=== PATIENT | male | born 1980 | race Asian ===

== ENCOUNTER 2016-07-03 20:58 | Emergency (ER) | payer OTHER ==
[~2016-07-03] VITALS: Ht 175.3 cm; Wt 104.5 kg
[~2016-07-03 20:58] MED LIST: ASPI-825 PO; CARV12.530 PO; CETI-260 PO; DOXA1TAB2 PO; FEBU40T PO; FOLI1 PO; GABA-533 PO; HYDR-4174 PO; INSLAN SQ; INSU100V SQ
[2016-07-03 21:15] LABS: GLUCOSE,POINT OF CARE 116 MG/DL (70-110)
[2016-07-03 23:31] VITALS: BP 135/89
== END 2016-07-03 23:33 | disposition home or self-care (01) ==
LOC: EMS 20:59
DX: S90.111A Contusion of right great toe without damage to nail, initial encounter (principal); I11.0 Hypertensive heart disease with heart failure; I50.9 Heart failure, unspecified; E11.9 Type 2 diabetes mellitus without complications; Z79.82 Long term (current) use of aspirin; Z79.4 Long term (current) use of insulin; X58.XXXA Exposure to other specified factors, initial encounter; Y93.89 Activity, other specified; Y92.89 Other specified places as the place of occurrence of the external cause; Y99.8 Other external cause status
CPT/HCPCS: 82962; 99284

== ENCOUNTER 2017-03-27 16:46 | Emergency (ER) | payer OTHER ==
[~2017-03-27] VITALS: Ht 175.3 cm; Wt 90.0 kg
[~2017-03-27 16:46] MED LIST changes: -CETI-260 PO; +CETI-290 PO
[2017-03-27] MEDS ORDERED: GuaiFENesin/D-METHORPHAN [SUGAR-FREE] 200-20MG/10 ML SYRUP UDCUP PO ONE (18:30)
[2017-03-27] MEDS ORDERED: ACETAMINOPHEN/CODEINE 300-30 MG TABLET PO ONE (18:30)
[2017-03-27 19:47] VITALS: BP 142/81
== END 2017-03-27 20:03 | disposition home or self-care (01) ==
LOC: EMS 16:47
DX: J40 Bronchitis, not specified as acute or chronic (principal); J06.9 Acute upper respiratory infection, unspecified; I11.0 Hypertensive heart disease with heart failure; I50.9 Heart failure, unspecified; E11.9 Type 2 diabetes mellitus without complications; Z79.82 Long term (current) use of aspirin; Z79.4 Long term (current) use of insulin; Z87.891 Personal history of nicotine dependence
CPT/HCPCS: 99283

== ENCOUNTER 2017-10-19 18:06 | Emergency (ER) | payer OTHER ==
[~2017-10-19] VITALS: Ht 175.3 cm; Wt 109.1 kg
[~2017-10-19 18:06] MED LIST changes: -CETI-290 PO; -DOXA1TAB2 PO
[2017-10-19 18:17] LABS: GLUCOSE,POINT OF CARE 233 MG/DL (70-110)
[2017-10-19 19:23] LABS: GLUCOSE,POINT OF CARE 182 MG/DL (70-110)
[2017-10-19 21:18] VITALS: BP 139/87
== END 2017-10-19 21:20 | disposition home or self-care (01) ==
LOC: EMS 18:07
DX: S99.922A Unspecified injury of left foot, initial encounter (principal); I11.0 Hypertensive heart disease with heart failure; I50.9 Heart failure, unspecified; E11.9 Type 2 diabetes mellitus without complications; Z79.4 Long term (current) use of insulin; Z79.82 Long term (current) use of aspirin; Z87.891 Personal history of nicotine dependence; W45.8XXA Other foreign body or object entering through skin, initial encounter; Y93.89 Activity, other specified; Y92.098 Other place in other non-institutional residence as the place of occurrence of the external cause; Y99.8 Other external cause status
CPT/HCPCS: 82948; 99284

== ENCOUNTER 2018-01-12 21:45 | Emergency (ER) | payer OTHER ==
[~2018-01-12] VITALS: Ht 175.3 cm; Wt 109.1 kg
[2018-01-12] MEDS ORDERED: CHL25 PO (21:52)
[2018-01-12 21:58] LABS: GLUCOSE,POINT OF CARE 283 MG/DL (70-110)
[2018-01-12] MEDS ORDERED: SODIUM CHLORIDE 0.9% 250 ML IRRIG SOLUTION BOTTLE IRRIG ONE (23:00)
[2018-01-12 23:08] VITALS: BP 149/96
== END 2018-01-12 23:16 | disposition home or self-care (01) ==
LOC: EMS 21:46
DX: S92.414A Nondisplaced fracture of proximal phalanx of right great toe, initial encounter for closed fracture (principal); S80.812A Abrasion, left lower leg, initial encounter; I11.0 Hypertensive heart disease with heart failure; I50.9 Heart failure, unspecified; E11.9 Type 2 diabetes mellitus without complications; Z79.4 Long term (current) use of insulin; Z79.82 Long term (current) use of aspirin; Z87.891 Personal history of nicotine dependence; W01.10XA Fall on same level from slipping, tripping and stumbling with subsequent striking against unspecified object, initial encounter; Y93.89 Activity, other specified; Y92.89 Other specified places as the place of occurrence of the external cause; Y99.8 Other external cause status
CPT/HCPCS: 99284

== ENCOUNTER 2020-12-06 21:58 | Emergency (ER) | payer MEDICARE, OTHER ==
[~2020-12-06] VITALS: Ht 175.3 cm; Wt 105.5 kg
[~2020-12-06 21:58] MED LIST changes: +ALLO100T2 PO; +ASPI-1450 PO; -ASPI-825 PO; +ATOR20TA65 PO; +CARV12 PO; -CARV12.530 PO; -FEBU40T PO; -FOLI1 PO; -GABA-533 PO; +GENT30CR TP; -HYDR-4174 PO; +SEVE800T17 PO
[2020-12-06 22:19] LABS: GLUCOSE,POINT OF CARE 162 MG/DL (70-110)
[2020-12-06] MEDS ORDERED: HYDROGEN PEROXIDE 118 ML SOLUTION TP ONE (23:30)
[2020-12-06 23:50] VITALS: BP 135/80
== END 2020-12-07 00:03 | disposition home or self-care (01) ==
LOC: EMS 22:00
DX: S61.102A Unspecified open wound of left thumb with damage to nail, initial encounter (principal); I11.0 Hypertensive heart disease with heart failure; I50.9 Heart failure, unspecified; E11.9 Type 2 diabetes mellitus without complications; F17.210 Nicotine dependence, cigarettes, uncomplicated; Z79.4 Long term (current) use of insulin; W45.8XXA Other foreign body or object entering through skin, initial encounter; Y93.89 Activity, other specified; Y92.89 Other specified places as the place of occurrence of the external cause; Y99.8 Other external cause status
CPT/HCPCS: 82962; 99282

== ENCOUNTER 2021-06-24 18:14 | Emergency (ER) | payer MEDICARE, OTHER ==
[~2021-06-24] VITALS: Ht 175.3 cm; Wt 106.8 kg
[2021-06-24 20:14] LABS: BASOPHILS % (AUTO) 0.9 % (0.0-2.0); EOSINOPHILS % (AUTO) 9.5 % (1.0-6.0); HEMATOCRIT 28.5 % (41-53); HEMOGLOBIN 9.6 g/dL (13.5-17.5); LYMPHOCYTES # (AUTO) 0.6 K/uL (1.0-4.8); LYMPHOCYTES % (AUTO) 9.4 % (22.0-44.0); MEAN CORPUSCULAR HEMOGLOBIN 32.5 pg (26.0-34.0); MEAN CORPUSCULAR HGB CONC 33.6 G/dL (31.0-37.0); MEAN CORPUSCULAR VOLUME 97 fL (80-100); MONOCYTES # (AUTO) 0.5 K/uL (0.1-1.0); MONOCYTES % (AUTO) 7.9 % (2.0-9.0); NEUTROPHILS # (AUTO) 4.5 K/uL (1.8-7.7); NEUTROPHILS % (AUTO) 72.3 % (40.0-70.0); PLATELET COUNT (AUTO) 194 K/uL (150-450); RED BLOOD CELL COUNT(AUTO) 2.94 MIL/uL (4.50-5.90); RED CELL DISTRIBUTION WIDTH 13.3 % (11.5-14.5)
[2021-06-24 20:23] LABS: CALCIUM, TOTAL 8.4 mg/dL (8.8-10.5); CREATININE 17.23 mg/dL (0.60-1.30); POTASSIUM 5.4 mmol/L (3.5-5.1)
[2021-06-24 20:30] LABS: ALBUMIN 3.2 g/dL (3.4-5.0); BILIRUBIN,TOTAL 0.3 mg/dL (0.1-1.0); TOTAL PROTEIN, SERUM 7.1 g/dL (6.4-8.2)
[2021-06-24 21:51] LABS: APPEARANCE,URINE SL CLOUDY (CLEAR); BILIRUBIN,URINE NEGATIVE (NEGATIVE); GLUCOSE, URINE (UA) 250 mg/dL (NEGATIVE); KETONES,URINE NEGATIVE (NEGATIVE); LEUKOCYTE ESTERASE ,URINE NEGATIVE (NEGATIVE); NITRATE,URINE NEGATIVE (NEGATIVE); OCCULT BLOOD,URINE MODERATE (NEGATIVE); PROTEIN,URINE SEE CONFIRM (NEGATIVE); UROBILINOGEN,URINE 0.2 mg/dL (<=1.0)
[2021-06-24 22:03] LABS: BACTERIA,URINE Few /HPF (None Seen); SQUAMOUS EPITHELIAL CELL,UR Rare /LPF (None Seen); SULFOSALICYLIC ACID,URINE 3+ (Negative)
[2021-06-24 22:30] VITALS: BP 152/76
== END 2021-06-25 03:03 | disposition home or self-care (01) ==
LOC: EMS 18:19
DX: M54.50 Low back pain, unspecified (principal); I13.2 Hypertensive heart and chronic kidney disease with heart failure and with stage 5 chronic kidney disease, or end stage renal disease; E11.22 Type 2 diabetes mellitus with diabetic chronic kidney disease; N18.6 End stage renal disease; I50.9 Heart failure, unspecified; E11.9 Type 2 diabetes mellitus without complications; Z79.4 Long term (current) use of insulin; Z79.899 Other long term (current) drug therapy; Z87.891 Personal history of nicotine dependence; Z99.2 Dependence on renal dialysis
CPT/HCPCS: 74176; 80053; 81001; 81002; 83690; 85025; 99284

== ENCOUNTER 2022-04-16 19:18 | Emergency (ER) | payer MEDICARE, OTHER ==
[~2022-04-16] VITALS: Ht 175.3 cm; Wt 111.4 kg
[~2022-04-16 19:18] MED LIST changes: +ALLO-97 PO; -ALLO100T2 PO
[2022-04-16] MEDS ORDERED: SEMA0.25 SQ (19:34)
[2022-04-16] MEDS ORDERED: INSLAN SQ (19:34)
[2022-04-16 20:05] LABS: BASOPHILS % (AUTO) 0.7 % (0.0-2.0); EOSINOPHILS % (AUTO) 7.8 % (1.0-6.0); HEMATOCRIT 33.6 % (41-53); HEMOGLOBIN 11.3 g/dL (13.5-17.5); LYMPHOCYTES # (AUTO) 0.8 K/uL (1.0-4.8); LYMPHOCYTES % (AUTO) 9.7 % (22.0-44.0); MEAN CORPUSCULAR HEMOGLOBIN 34.1 pg (26.0-34.0); MEAN CORPUSCULAR HGB CONC 33.7 G/dL (31.0-37.0); MEAN CORPUSCULAR VOLUME 101 fL (80-100); MONOCYTES # (AUTO) 0.7 K/uL (0.1-1.0); MONOCYTES % (AUTO) 8.6 % (2.0-9.0); NEUTROPHILS % (AUTO) 73.2 % (40.0-70.0); PLATELET COUNT (AUTO) 171 K/uL (150-450); RED BLOOD CELL COUNT(AUTO) 3.32 MIL/uL (4.50-5.90); RED CELL DISTRIBUTION WIDTH 13.5 % (11.5-14.5)
[2022-04-16 20:14] LABS: CALCIUM, TOTAL 8.9 mg/dL (8.8-10.5); CREATININE 16.86 mg/dL (0.60-1.30); POTASSIUM 3.8 mmol/L (3.5-5.1)
[2022-04-16 20:20] LABS: BILIRUBIN,TOTAL 0.2 mg/dL (0.1-1.0); TOTAL PROTEIN, SERUM 7.3 g/dL (6.4-8.2)
[2022-04-16 21:00] VITALS: BP 143/75
[2022-04-16 21:16] LABS: GLUCOSE,POINT OF CARE 197 MG/DL (70-110)
[2022-04-17] MEDS ORDERED: ALLO100T PO (18:39)
[2022-04-17] MEDS ORDERED: FOLI-130 PO (18:39)
[2022-04-17] MEDS ORDERED: BETA50CR5 TP (18:39)
[2022-04-17] MEDS ORDERED: BRIM15DR8 OU (18:39)
[2022-04-17] MEDS ORDERED: ATOR10TA69 PO (18:39)
[2022-04-17] MEDS ORDERED: INSU3INS3 SQ (18:39)
[2022-04-17] MEDS ORDERED: OMEP20CA12 PO (18:39)
[2022-04-17] MEDS ORDERED: INSU100I3 SQ (18:39)
[2022-04-17] MEDS ORDERED: LATA2.5D14 OU (18:39)
[2022-04-17] MEDS ORDERED: GABA-529 PO (18:39)
== END 2022-04-16 23:40 | disposition home or self-care (01) ==
LOC: EMS 22:08
DX: E11.65 Type 2 diabetes mellitus with hyperglycemia (principal); E11.22 Type 2 diabetes mellitus with diabetic chronic kidney disease; I13.2 Hypertensive heart and chronic kidney disease with heart failure and with stage 5 chronic kidney disease, or end stage renal disease; N18.6 End stage renal disease; Z99.2 Dependence on renal dialysis; Z87.891 Personal history of nicotine dependence
CPT/HCPCS: 80053; 82962; 84484; 85025; 99283

== ENCOUNTER 2024-01-04 06:10 | Emergency (ER) | payer OTHER ==
[~2024-01-04] VITALS: Ht 175.3 cm; Wt 86.4 kg
[~2024-01-04 06:10] MED LIST changes: -ALLO-97 PO; +ALLO100T PO; +ATOR10TA69 PO; -ATOR20TA65 PO; +BETA50CR5 TP; +BRIM5DRO9 OU; +FOLI-130 PO; +GABA-529 PO; -GENT30CR TP; +INSU100I3 SQ; -INSU100V SQ; +INSU3INS3 SQ; +LATA2.5D14 OU; +OMEP20CA12 PO; +SEMA0.25 SQ; -SEVE800T17 PO; +SEVE800T38 PO
[2024-01-04 06:17] VITALS: TEMP 98.3
[2024-01-04 06:37] LABS: BASOPHILS % (AUTO) 0.5 % (0.0-2.0); EOSINOPHILS % (AUTO) 10.2 % (1.0-6.0); HEMATOCRIT 28.1 % (41-53); HEMOGLOBIN 9.7 g/dL (13.5-17.5); LYMPHOCYTES # (AUTO) 0.4 K/uL (1.0-4.8); LYMPHOCYTES % (AUTO) 5.5 % (22.0-44.0); MEAN CORPUSCULAR HEMOGLOBIN 35.2 pg (26.0-34.0); MEAN CORPUSCULAR HGB CONC 34.7 G/dL (31.0-37.0); MEAN CORPUSCULAR VOLUME 102 fL (80-100); MONOCYTES # (AUTO) 0.8 K/uL (0.1-1.0); MONOCYTES % (AUTO) 10.7 % (2.0-9.0); NEUTROPHILS # (AUTO) 5.3 K/uL (1.8-7.7); NEUTROPHILS % (AUTO) 73.1 % (40.0-70.0); PLATELET COUNT (AUTO) 150 K/uL (150-450); RED BLOOD CELL COUNT(AUTO) 2.76 MIL/uL (4.50-5.90); RED CELL DISTRIBUTION WIDTH 13.3 % (11.5-14.5); WHITE BLOOD COUNT (AUTO) 7.2 K/uL (4.5-11.0)
[2024-01-04 06:47] LABS: ANION GAP 9 mmol/L (8-16); CALCIUM, TOTAL 8.8 mg/dL (8.8-10.5); CARBON DIOXIDE 31 mmol/L (22-29); CHLORIDE 91 mmol/L (98-107); CREATININE 14.97 mg/dL (0.60-1.30); GLOMERULAR FILTR. RATE CALC 4 mL/min (>60); GLUCOSE,RANDOM 154 mg/dL (70-110); POTASSIUM 3.1 mmol/L (3.5-5.1); SODIUM SERUM 131 mmol/L (136-145); UREA NITROGEN, BLOOD 72 mg/dL (7-18)
[2024-01-04 06:48] LABS: LIPASE 62 U/L (16-77)
[2024-01-04 06:51] LABS: B-TYPE NATRIURETIC PEPTIDE 74 pg/mL (0-100)
[2024-01-04 06:52] LABS: LACTIC ACID 1.1 mmol/L (0.4-2.0)
[2024-01-04 07:06] LABS: TROPONIN I-HIGH SENSITIVITY 83 ng/L (<76)
[2024-01-04] MEDS ORDERED: INSU100I47 SQ (07:34)
[2024-01-04] MEDS ORDERED: ATOR40TA28 PO (07:34)
[2024-01-04] MEDS ORDERED: SUCR500T PO (07:34)
[2024-01-04] MEDS ORDERED: GABA-1216 PO (07:34)
[2024-01-04] MEDS ORDERED: CINA30 PO (07:34)
[2024-01-04] MEDS ORDERED: ALLO-97 PO (07:34)
[2024-01-04] MEDS ORDERED: INSLAN SQ (07:34)
[2024-01-04 07:54] LABS: RBC MORPHOLOGY COMMENT ABNORMAL RBC MORPH
[2024-01-04] MEDS: ASPIRIN 325 MG TABLET PO ONE (07:56)
[2024-01-04] MEDS ORDERED: ZOLPIDEM TARTRATE 5 MG TABLET PO PRN (08:15)
[2024-01-04] MEDS ORDERED: DEXTROSE 50%-WATER 25 GM/50 ML SYRINGE IVP PRN (08:15)
[2024-01-04] MEDS ORDERED: ACETAMINOPHEN 325 MG TABLET PO PRN (08:15)
[2024-01-04] MEDS ORDERED: ONDANSETRON HCL 4 MG/2 ML VIAL IVP PRN (08:15)
[2024-01-04] MEDS ORDERED: INSULIN LISPRO 100 UNITS/ML SQ PRN (08:15)
[2024-01-04] MEDS ORDERED: MIDO5TAB29 PO (08:52)
[2024-01-04] MEDS ORDERED: CALC1SOL2 PO (08:52)
[2024-01-04] MEDS ORDERED: VERI2.5T PO (08:52)
[2024-01-04] MEDS ORDERED: CHOL25TA4 PO (08:52)
[2024-01-04] MEDS ORDERED: SEMA1PEN3 SQ (08:52)
[2024-01-04] MEDS: POTASSIUM CHLORIDE 10 MEQ ER TABLET PO ONE (08:53)
[2024-01-04] MEDS: FAMOTIDINE 20 MG TABLET PO SCH (08:53)
[2024-01-04] MEDS: ATORVASTATIN CALCIUM 20 MG TABLET PO SCH (08:53)
[2024-01-04] MEDS: DOCUSATE SODIUM 100 MG CAPSULE PO SCH (08:53)
[2024-01-04 08:56] VITALS: BP 146/77; PULSE 88; RESP 16
[2024-01-04] MEDS ORDERED: POTASSIUM CHL 10 MEQ/WATER 50 ML IV SCH ×2 (10:00→11:00)
[2024-01-04 11:51] LABS: GLUCOMETER DEV NAME(LOC) ERT.5; GLUCOSE,POINT OF CARE 136 MG/DL (70-110)
[2024-01-04] MEDS ORDERED: HEPARIN SODIUM,PORCINE 5,000 UNITS/ML VIAL SQ SCH (16:00)
[2024-01-05] MEDS ORDERED: ASPIRIN 81 MG CHEWABLE TABLET PO SCH (09:00)
== END 2024-01-04 09:30 | disposition left against medical advice (07) ==
LOC: EMS 06:11 → UNDOADMIN 08:25 → EDH 08:25 → EMS 09:30 → UNDODISIN 10:30
DX: E11.22 Type 2 diabetes mellitus with diabetic chronic kidney disease (principal); I13.2 Hypertensive heart and chronic kidney disease with heart failure and with stage 5 chronic kidney disease, or end stage renal disease; N18.6 End stage renal disease; I50.22 Chronic systolic (congestive) heart failure; Z87.891 Personal history of nicotine dependence; Z98.890 Other specified postprocedural states
CPT/HCPCS: 71045; 80048; 82962; 83605; 83690; 83880; 84484; 85025; 93005; 93306; 99285; 36415-L1; 36415-TC